=== PATIENT | female | born 1995 | race Two or more races ===

== ENCOUNTER 2023-08-18 14:47 | Emergency (ER) | payer MEDICAID ==
[~2023-08-18] VITALS: Ht 165.1 cm; Wt 64.9 kg
[2023-08-18 16:01] VITALS: TEMP 98.7
[2023-08-18] MEDS ORDERED: DICL500C PO (19:41)
[2023-08-18 19:52] VITALS: BP 116/66; O2SAT 99
== END 2023-08-18 19:55 | disposition home or self-care (01) ==
LOC: ER 15:02
DX: N61.0 Mastitis without abscess (principal)
CPT/HCPCS: 76642-LT-TC